=== PATIENT | male | born 1980 ===

== ENCOUNTER 2021-08-30 12:02 | Emergency (ER) | payer SELFPAY ==
[~2021-08-30] VITALS: Ht 180.3 cm; Wt 136.1 kg
[2021-08-30 12:05] VITALS: BP 186/102
== END 2021-08-30 13:24 | disposition left against medical advice (07) ==
LOC: ER 12:02
DX: I10 Essential (primary) hypertension (principal); Z53.21 Procedure and treatment not carried out due to patient leaving prior to being seen by health care provider